=== PATIENT | male | born 1975 | race Caucasian/White ===

== ENCOUNTER 2017-05-11 10:21 | Emergency (ER) | payer BC, OTHER ==
--- NOTE | 2017-05-11 10:25 | EDM.PDOC ---
ED HPI GENERAL MEDICAL PROBLEM - General Stated Complaint: BLOOD EXPOSURE Time Seen by Provider: 05/11/17 10:24 Source of Information: Reports: Patient - History of Present Illness INITIAL COMMENTS - FREE TEXT/NARRATIVE: HISTORY AND PHYSICAL: History of present illness: []Patient involved in a blood exposure with an HIV patient, apparently the circumstances were such that she was actively delivering a baby here in the emergency department, Roque as the physician on duty at the time and acting quickly as the baby was essentially delivered head and I believe shoulders as well acted accordingly and was exposed to blood mostly from fingertips up to elbows, I do not visualize any open sores in this area he also had blood on his clothing anterior chest etc. No fever nausea vomiting chills sweats no chest pain shortness breath headache dizziness palpitation no bowel or urine symptoms Apparently the mother is known to have HIV infection Lab was drawn last night after the exposure [facility] department with Josee has been actively working on counseling the exposed employees, she is also contacted the state which has recommended post exposure prophylaxis. In conjunction with our pharmacist Jude and what is available through local pharmacies the recommendation for a 3 drug regimen was made for 28 days as follows below Review of systems: As per history of present illness and below otherwise all systems reviewed and negative. Past medical history: As per history of present illness and as reviewed below otherwise noncontributory. Surgical history: As per history of present illness and as reviewed below otherwise noncontributory. Social history: No reported history of drug or alcohol abuse. Family history: As per history of present illness and as reviewed below otherwise noncontributory. Physical exam: HEENT: Atraumatic, normocephalic, pupils reactive, negative for conjunctival pallor or scleral icterus, mucous membranes moist, throat clear, neck supple, nontender, trachea midline. Lungs: Clear to auscultation, breath sounds equal bilaterally, chest nontender. Heart: S1S2, regular, negative for clicks, rubs, or JVD. Abdomen: Soft, nondistended, nontender. Negative for masses or hepatosplenomegaly. Negative for costovertebral tenderness. Pelvis: Stable nontender. Genitourinary: Deferred. Rectal: Deferred. Extremities: Atraumatic, negative for cords or calf pain. Neurovascular unremarkable. Neuro: Awake, alert, oriented. Cranial nerves II through XII unremarkable. Cerebellum unremarkable. Motor and sensory unremarkable throughout. Exam nonfocal. Diagnostics: [Post exposure labs previously drawn prior to my involvement ] I did had an acute hepatitis panel Therapeutics: [trivikay 50mg po qd #28 no rf emtricabine 200mg po daily #28 no rf tenofovir DF 300mg po daily #28 no rf ] Impression: [Post exposure prophylaxis]-HIV Definitive disposition and diagnosis as appropriate pending reevaluation and review of above. - Related Data Allergies Allergy/AdvReac Type Severity Reaction Status Date / Time No Known Allergies Allergy Verified 05/11/17 11:13 Home Meds: Home Meds . [No Known Home Meds] 05/11/17 [History] ED ROS GENERAL - Review of Systems Review Of Systems: ROS reveals no pertinent complaints other than HPI. ED EXAM, GENERAL - Physical Exam Exam: See Below Course - Vital Signs Last Recorded V/S: Last Vital Signs Temp 98.2 F 05/11/17 10:22 Pulse 101 H 05/11/17 10:22 Resp 18 05/11/17 10:22 BP 148/98 H 05/11/17 10:22 Pulse Ox 95 05/11/17 10:22 - Orders/Labs/Meds Orders: Active Orders 24 hr Category Date Time Status HEPATITIS PANEL, ACUTE [REF] Stat Lab 05/11/17 11:27 Ordered Departure - Departure Time of Disposition: 11:28 Disposition: Home, Self-Care 01 Condition: Good Clinical Impression: Exposure to bloodborne pathogen - Discharge Information Instructions: Body Fluid Exposure Information Referrals: Bran Montez MD [Primary Care Provider] - Forms: ED Department Discharge Additional Instructions: The following information is given to patients seen in the emergency department who are being discharged to home. This information is to outline your options for follow-up care. We provide all patients seen in our emergency department with a follow-up referral. The need for follow-up, as well as the timing and circumstances, are variable depending upon the specifics of your emergency department visit. If you don't have a primary care physician on staff, we will provide you with a referral. We always advise you to contact your personal physician following an emergency department visit to inform them of the circumstance of the visit and for follow-up with them and/or the need for any referrals to a consulting specialist. The emergency department will also refer you to a specialist when appropriate. This referral assures that you have the opportunity for follow-up care with a specialist. All of these measure are taken in an effort to provide you with optimal care, which includes your follow-up. Under all circumstances we always encourage you to contact your private physician who remains a resource for coordinating your care. When calling for follow-up care, please make the office aware that this follow-up is from your recent emergency room visit. If for any reason you are refused follow-up, please contact the [facility] emergency department at and asked to speak to the emergency department charge nurse. - My Orders Last 24 Hours: My Active Orders 05/11/17 11:27 HEPATITIS PANEL, ACUTE [REF] Stat - Assessment/Plan Last 24 Hours: My Active Orders 05/11/17 11:27 HEPATITIS PANEL, ACUTE [REF] Stat
== END 2017-05-11 10:40 | disposition home or self-care (01) ==
LOC: MW.ED 10:21
DX: Z77.21 Contact with and (suspected) exposure to potentially hazardous body fluids (principal)
CPT/HCPCS: 36415; 86706; 86803; 87389; 99281